=== PATIENT | male | born 1960 | race African-American/Black ===

== ENCOUNTER 2019-07-30 19:57 | Emergency (ER) | payer MEDICAID ==
[~2019-07-30] VITALS: Ht 175.3 cm; Wt 73.0 kg
[2019-07-31] MEDS ORDERED: MAGNESIUM/ALUMINUM HYDROXIDE/SIMETHICONE 30ML UDC PO STA (01:27)
[2019-07-31 01:46] LABS: CLARITY URINE CLEAR (CLEAR); COLOR URINE DARK YELLOW (YELLOW); KETONES URINE 1+ (NEGATIVE); LEUKOCYTE ESTERASE URINE NEGATIVE (NEGATIVE); NITRITE URINE NEGATIVE (NEGATIVE); OCCULT BLOOD URINE NEGATIVE (NEGATIVE); PROTEIN URINE TRACE (NEGATIVE); SPECIFIC GRAVITY URINE 1.023 (1.005-1.030)
[2019-07-31 01:47] LABS: BASOPHILS % 0.7 % (0.0-2.0); EOSINOPHILS % 1.2 % (0.0-5.0); HEMATOCRIT. 42.1 % (42.0-52.0); HEMOGLOBIN. 14.4 g/dL (14.0-18.0); LYMPHOCYTES % 22.9 % (20.0-50.0); MEAN CORPUSCULAR VOLUME 87.9 fL (80.0-94.0); MEAN PLATELET VOLUME 6.8 fl (7.4-10.4); MONOCYTES % 6.8 % (2.0-8.0); NEUTROPHILS % 68.4 % (40.0-76.0); PLATELET 391 x1000/uL (130-400); RED BLOOD CELL COUNT 4.78 mill/uL (4.7-6.1); RED CELL DISTRIBUTION WIDTH 14.4 % (11.6-14.6)
[2019-07-31 01:52] LABS: CHLORIDE 99 mEq/L (98-107)
[2019-07-31] MEDS ORDERED: ACETAMINOPHEN WITH CODEINE 300/30MG TABLET PO ONE (03:15)
[2019-07-31 04:30] VITALS: BP 126/70
== END 2019-07-31 04:35 | disposition home or self-care (01) ==
LOC: ER 19:57
DX: K29.70 Gastritis, unspecified, without bleeding (principal); R10.9 Unspecified abdominal pain; I10 Essential (primary) hypertension; F17.200 Nicotine dependence, unspecified, uncomplicated; Z71.6 Tobacco abuse counseling
CPT/HCPCS: 36415; 76705; 80053; 81003; 85025; 99285; 99406

== ENCOUNTER 2024-03-29 10:38 | Emergency (ER) | payer MEDICAID ==
[~2024-03-29] VITALS: Ht 175.3 cm; Wt 81.6 kg
[2024-03-29 10:39] VITALS: O2SAT 100
[2024-03-29 12:22] LABS: BASOPHILS % 1.2 % (0.0-2.0); EOSINOPHILS % 0.6 % (0.0-5.0); HEMATOCRIT. 36.8 % (42.0-52.0); HEMOGLOBIN. 12.4 g/dL (14.0-18.0); LYMPHOCYTES % 12.3 % (20.0-50.0); MEAN CORPUSCULAR HGB CONC 33.8 g/dL (31.0-37.0); MEAN PLATELET VOLUME 6.4 fl (7.4-10.4); MONOCYTES % 6.1 % (2.0-8.0); NEUTROPHILS % 79.8 % (40.0-76.0); PLATELET 395 x1000/uL (130-400); RED BLOOD CELL COUNT 4.01 mill/uL (4.7-6.1); RED CELL DISTRIBUTION WIDTH 14.3 % (11.6-14.6)
[2024-03-29 12:37] LABS: CHLORIDE 110 mEq/L (98-107); POTASSIUM 4.1 mEq/L (3.5-5.1); SODIUM 141 mEq/L (136-145)
[2024-03-29 12:38] LABS: CARBON DIOXIDE 27 mEq/L (21-32)
[2024-03-29 12:39] LABS: CALCIUM 9.2 mg/dL (8.7-10.4)
[2024-03-29 12:43] LABS: CREATININE 0.8 mg/dL (0.6-1.3); GLUCOSE 84 mg/dL (70-105); UREA NITROGEN BLOOD 8 mg/dL (9-23)
[2024-03-29 13:19] LABS: CLARITY URINE CLEAR (CLEAR); COLOR URINE YELLOW (YELLOW); GLUCOSE URINE NEGATIVE (NEGATIVE); KETONES URINE NEGATIVE (NEGATIVE); LEUKOCYTE ESTERASE URINE NEGATIVE (NEGATIVE); NITRITE URINE NEGATIVE (NEGATIVE); OCCULT BLOOD URINE NEGATIVE (NEGATIVE); PROTEIN URINE NEGATIVE (NEGATIVE); UROBILINOGEN URINE 0.2 E.U./dL (0.2-1.0)
[2024-03-29 13:30] VITALS: BP 158/91; PULSE 68; RESP 16; TEMP 36.83628; O2SAT 100
[2024-03-29] MEDS: VANCOMYCIN 1000MG/250ML 250 ML IV SCH (13:45)
== END 2024-03-29 17:05 | disposition left against medical advice (07) ==
LOC: ER 10:38
DX: M65.90 Unspecified synovitis and tenosynovitis, unspecified site (principal); I10 Essential (primary) hypertension; F12.10 Cannabis abuse, uncomplicated
CPT/HCPCS: 99284; 96365; 96366; 80048; 81003; 85025; 87040; 36415; 73140; J3370

== ENCOUNTER 2024-03-30 12:27 | Emergency (ER) | payer MEDICAID ==
[~2024-03-30] VITALS: Ht 175.3 cm; Wt 70.0 kg
[2024-03-30 12:35] VITALS: BP 133/89; PULSE 79; RESP 18; TEMP 98.4; O2SAT 98
[2024-03-30] MEDS ORDERED: VANCOMYCIN 1G PREMIX 200 ML IV ONE (13:15)
[2024-03-30] MEDS ORDERED: PIPERACILLIN/TAZO 3.375G/50ML 50 ML IV ONE (13:15)
[2024-03-30 13:51] LABS: BASOPHILS % 0.9 % (0.0-2.0); EOSINOPHILS % 1.3 % (0.0-5.0); HEMATOCRIT. 35.7 % (42.0-52.0); HEMOGLOBIN. 12.3 g/dL (14.0-18.0); LYMPHOCYTES % 11.5 % (20.0-50.0); MEAN CORPUSCULAR HEMOGLOBIN 31.4 pg (28.0-32.0); MEAN CORPUSCULAR HGB CONC 34.5 g/dL (31.0-37.0); MEAN PLATELET VOLUME 6.7 fl (7.4-10.4); MONOCYTES % 5.4 % (2.0-8.0); NEUTROPHILS % 80.9 % (40.0-76.0); PLATELET 391 x1000/uL (130-400); RED BLOOD CELL COUNT 3.92 mill/uL (4.7-6.1); RED CELL DISTRIBUTION WIDTH 14.3 % (11.6-14.6); WHITE BLOOD COUNT 10.6 x1000/uL (4.5-11.0)
[2024-03-30 13:53] LABS: CHLORIDE 110 mEq/L (98-107); POTASSIUM 4.1 mEq/L (3.5-5.1); SODIUM 141 mEq/L (136-145)
[2024-03-30 13:54] LABS: CARBON DIOXIDE 28 mEq/L (21-32)
[2024-03-30 13:55] LABS: CALCIUM 9.4 mg/dL (8.7-10.4)
[2024-03-30 13:59] LABS: CREATININE 0.9 mg/dL (0.6-1.3); GLUCOSE 90 mg/dL (70-105); UREA NITROGEN BLOOD 8 mg/dL (9-23)
== END 2024-03-30 14:45 | disposition left against medical advice (07) ==
LOC: ER 12:37
DX: M65.90 Unspecified synovitis and tenosynovitis, unspecified site (principal); F12.10 Cannabis abuse, uncomplicated
CPT/HCPCS: 36415; 80048; 83605; 85025; 99283